=== PATIENT | female | born 1995 | race Caucasian/White ===

== ENCOUNTER → 2016-12-31 | Day surgery (SDC) | payer OTHER ==
[2016-12-17 14:05] VITALS: Ht 172.7 cm; Wt 59.1 kg
[~2016-12-31] VITALS: Ht 172.7 cm; Wt 59.1 kg
[~2016-12-31] MED LIST: ASCA500 PO; ATROPINE SULFATE 0.1 MG/ML 5ML SYR IV PRN; BCPILLS PO; BUPIVACAINE/EPINEPHRINE 0.25% 1:200,000 30 ML VIAL ONE; CEFAZOLIN 2000 MG/60 ML D5W IV SCH; DEXAMETHASONE SOD INJ 4 MG/ML VIAL ONE; EpHEDrine SULFATE INJ 50 MG/ML AMP IV PRN; EpINEphrine INJ 1MG/ML AMP 1 MG/ML AMP ONE; FENTANYL CITRATE INJ 50 MCG/1 ML 2 ML VIAL IV PRN; FENTANYL CITRATE INJ 50 MCG/1 ML 2 ML VIAL ONE; GLYCOPYRROLATE INJ 0.2 MG/ML VIAL ONE; KETO10TA PO; LACTATED RINGER'S 1000ML 1,000 ML IV SCH; LIDOCAINE HCL 2% 2 ML VIAL (20MG/ML) ONE; MIDAZOLAM HCL 1 MG/ML 2ML VIAL ONE; NEOSTIGMINE METHYLSULFATE 5 MG/5 ML SYR ONE; ONDANSETRON INJ 2 MG/ML 2 ML VIAL IV PRN; ONDANSETRON INJ 2 MG/ML 2 ML VIAL ONE; OXYC-57 PO; OXYCODONE/ACETAMINOPHEN 5-325 TAB PO PRN; PROPOFOL IV EMULSION 10 MG/ML 20 ML VIAL IV ONE; ROCURONIUM BROMIDE 10 MG/ML 5 ML VIAL ONE; ROPIVACAINE 0.5% 5 MG/ML 30 ML VIAL ONE; SCOPOLAMINE 1.5 MG TDSY TD ONE; SODIUM CHLORIDE 0.9% 1000ML 1,000 ML IV SCH; SUCCINYLCHOLINE CHLORIDE 20 MG/ML 10 ML VIAL IV ONE
--- NOTE | 2016-12-31 07:08 | History & Physical Bridge - [place] ---
H&P Re-Evaluation Bridge Note: I have examined the patient, reviewed the History & Physical and in the interval since the performance of the History & Physical I have noted the following changes of clinical significance: No changes noted
--- NOTE | 2016-12-31 09:29 | Discharge Instructions-SurgCtr ---
Discharge Instructions Date of Service Dec 31, 2016. Visit Reason for Visit: Left Shoulder Injury Of Superior Glenoid Labrum Discharge Discharge Diagnosis / Problem: SAME ABOVE Discharge Goals Goal(s): Decrease discomfort, Improve function Activity Recommendations Activity Limitations: as noted below Lifting Limitations: gradually increase as tolerated Exercise/Sports Limitations: gradually increase as tolerated Shower/Bathe: tomorrow Anesthesia . Post Anesthesia Instructions: If you have had General Anesthesia or IV Sedation: * Do not drive today. * Resume driving when surgeon permits. * Do not make important decisions or sign legal documents today. * Call surgeon for: 1. Temperature elevations greater than 101 degrees F. 2. Uncontrollable pain. 3. Excessive bleeding. 4. Persistent nausea and vomiting. 5. Medication intolerance (nausea, vomiting or rash). * For nausea and vomiting use only clear liquids such as: tea, soda, bouillon until nausea subsides, then gradually increase diet as tolerated. * If you have any concerns or questions, call your surgeon's office. If physician is unavailable and it is an emergency, call 911 or go to the nearest emergency room. . Instructions / Follow-Up Instructions / Follow-Up MEDICATIONS: * Resume previous medications unless instructed otherwise by your surgeon. * Always take pain medication on a full stomach or with food to avoid upset stomach. * Do not drink alcohol or drive while taking narcotics. * Ibuprofen or Tylenol may be taken if narcotic not needed. SPECIAL CARE INSTRUCTIONS: __ None _X_ Keep extremity elevated and iced x 48 hours; apply ice 20-30 minutes 8-10 times/day. May remove at night. _X_ Sling (WEAR ONLY NEEDED FOR COMFORT) __24 hrs/day __ Remove at night __ Shoulder Immobilizer __ 24 hrs/day __ Remove at night _X_ Dressing __ Maintain until seen in office, may shower with plastic over site _X_ Remove dressings in 24-48 hours and then may shower _X_ Cover incisions with band-aids after showering __ Do not remove steri-strips Call physician if chills or temperature rises above 102 degrees or pain unrelieved by prescribed pain medications at . . Diet Recommendations Home Diet: no limitations Fluid Restriction: None Procedures Procedures Performed: Left Shoulder Arthroscopy, Debridement Pending Studies Studies pending at discharge: no Work Instructions Return To Work: after follow-up Lifting Limitations: INCREASE TOLERATED Medical Emergencies . Who to Call and When: Medical Emergencies: If at any time you feel your situation is an emergency, please call 911 immediately. . Non-Emergent Contact Non-Emergency issues call your: Primary Care Provider Call Non-Emergent contact if: you have a fever, temperature is above 101.5 . . "Provider Documentation" section prepared by Roverto Last. .
[2016-12-31 10:13] VITALS: TEMP 36.5
--- NOTE | 2016-12-31 10:32 | [facility] Post Operative Brief Note ---
Immediate Operative Summary Operative Date Dec 31, 2016. Pre-Operative Diagnosis Left Shoulder Injury of Superior Glenoid Labrum Post-Operative Diagnosis same Procedure(s) Performed Left Shoulder Arthroscopy, Debridement Surgeon Dr. Jimi Reilly Design Cell Engineer Surgeon(s) Irving Last PA-C Estimated Blood Loss 5cc Findings as above Specimens none Complication(s) None Disposition Recovery Room / PACU
[2016-12-31 10:35] VITALS: BP 100/63; PULSE 66; O2SAT 100
--- NOTE | 2016-12-31 10:39 | Anesthesia Progress Nt - [facility] ---
Anesthesia Post Op Note Date & Time Dec 31, 2016 at 10:39 Vital Signs Pain Intensity: 0 Vital Signs Past 12 Hours Date Time Temp Pulse Resp B/P (MAP) Pulse Ox O2 Delivery O2 Flow Rate FiO2 12/31/16 10:35 66 14 100/63 (75) 100 Room Air 12/31/16 10:13 36.5 71 16 111/69 (83) 99 Room Air 12/31/16 10:01 36.6 111/73 12/31/16 09:59 85 21 100 12/31/16 09:59 85 21 12/31/16 09:56 109/70 12/31/16 09:54 80 20 100 12/31/16 09:54 79 20 12/31/16 09:51 104/65 12/31/16 09:49 91 15 12/31/16 09:49 87 15 100 12/31/16 09:46 112/65 12/31/16 09:44 77 16 12/31/16 09:44 79 16 100 12/31/16 09:41 110/68 12/31/16 09:39 90 16 100 12/31/16 09:39 86 16 12/31/16 09:36 112/63 12/31/16 09:34 100 20 12/31/16 09:34 101 20 100 12/31/16 09:31 116/64 12/31/16 09:29 101 16 12/31/16 09:29 101 16 100 12/31/16 09:28 36.5 122 20 114/67 100 Mask 6 12/31/16 08:27 114/67 12/31/16 08:19 0 12/31/16 08:18 22 12/31/16 08:16 108/66 12/31/16 08:13 101 12/31/16 08:13 101 37 100 12/31/16 08:12 98 12/31/16 08:12 100 21 100 12/31/16 08:11 105/68 12/31/16 08:11 105/68 12/31/16 08:10 105 12/31/16 08:10 102 20 100 12/31/16 08:07 99 12/31/16 08:07 97 18 100 12/31/16 08:06 110/66 12/31/16 08:06 110/66 12/31/16 08:05 98 12/31/16 08:05 100 34 100 12/31/16 08:02 102 20 100 12/31/16 08:02 102 12/31/16 08:01 118/76 12/31/16 08:01 118/76 12/31/16 08:00 112 18 100 12/31/16 08:00 111 12/31/16 07:57 115 15 100 12/31/16 07:57 115 12/31/16 07:56 117/68 12/31/16 07:56 117/68 12/31/16 07:55 124 12/31/16 07:55 124 12/31/16 07:55 122 28 100 12/31/16 07:55 122 28 100 12/31/16 07:51 118/76 12/31/16 07:51 118/76 12/31/16 07:50 100 12/31/16 07:50 100 100 12/31/16 07:50 100 12/31/16 07:50 100 100 12/31/16 06:29 36.7 88 16 118/70 (86) 100 Room Air Notes Mental Status: alert / awake / arousable, participated in evaluation Pt Amnestic to Procedure: Yes Nausea / Vomiting: adequately controlled Pain: adequately controlled Airway Patency, RR, SpO2: stable & adequate BP & HR: stable & adequate Hydration State: stable & adequate Anesthetic Complications: no major complications apparent
--- NOTE | 2016-12-31 11:17 | OPERATIVE REPORT ---
DATE OF OPERATION: 12/31/2016 PREOPERATIVE DIAGNOSIS: Possible superior labrum, anterior and posterior tear of the left shoulder. POSTOPERATIVE DIAGNOSIS: Large anterior superior sublabral foramen with intact superior labrum and superior glenohumeral ligament scar into the biceps tendon. PROCEDURE: Left shoulder diagnostic arthroscopy with limited debridement. SURGEON: Dr. Jose Reilly. LEAN SPECIALIST: Irving Last PA-C, whose assistance was necessary for positioning the arm and helping with instrumentation. ANESTHESIA: General with a left interscalene nerve block. COMPLICATIONS: None. CONDITION: Stable to PACU. INDICATIONS: Nu is a pleasant 21-year-old female who has been having a several year history of left shoulder pain. It is getting to the point now where it hurts her throughout the day and she is having difficulty sleeping at night. She has had 2 MRIs, 1 was suggestive of questionable SLAP tear. The other one did not show any labral tears. On clinical examination, she had very positive Brashear's test and elected to proceed with diagnostic arthroscopy. OPERATION AND FINDINGS: On 12/31/[address] [facility] for the above procedure. She was seen in the preoperative holding area and the operative extremity was identified and signed. She was given a preoperative antibiotic and a left interscalene nerve block. She was taken back to the operating room, laid on the table in supine position and put under general anesthesia. She was then put in the lateral decubitus position. The left shoulder was then prepped and draped in sterile fashion. Time-out was done and the patient and operative extremity was properly identified. The arm was brought out to an Arthrex 3-point distracter. A scope was placed in the posterior portal. Diagnostic arthroscopy showed no cartilage damage to the humeral head or the glenoid. The rotator cuff was intact. The biceps tendon went through a normal size biceps rigoberto mechanism. There were bands of the superior glenohumeral ligament that were extending down along the dorsal aspect of the biceps tendon. There was a little redness in this area. There was a large anterior superior sublabral foramen. I did not see any thickening of the middle glenohumeral ligament and no true Donnie complex. The biceps tendon was well anchored on the superior glenoid. An anterior portal was made and a probe was used to probe the intra-articular structures. Circumferentially the labrum was completely intact. A shaver was used to remove the remnants of the superior glenohumeral ligament that were coming down onto the dorsal aspect of the biceps tendon. This freed up the biceps tendon. The biceps tendon was pulled into the joint. There was no pathology identified. The scope was placed into the anterior portal. Repeat diagnostic arthroscopy from the contralateral portal showed no additional pathology. I did debride a little bit of the posterior superior labrum, but I could not identify anything significant in the shoulder. The scope was placed back into the posterior portal and I took the shoulder through a full range of motion. There was no peel back sign. No signs of any impingement. Arthroscopic instruments were removed from the shoulder. Portal sites were closed with 3-0 nylon. She was then placed in a soft dressing and a regular arm sling. She was then extubated, transferred to a litter and taken to the postanesthesia care unit in stable condition. She tolerated the procedure well. I attest to the content of the Intraoperative Record and any orders documented therein. Any exception s are noted below.
== END | disposition home or self-care (01) ==
LOC: X.SURG 06:09 → EDSEX 07:00
PROVIDERS: ATTEND Orthopaedic Surgery
DX: S43.402A Unspecified sprain of left shoulder joint, initial encounter (principal); X58.XXXA Exposure to other specified factors, initial encounter; Z90.89 Acquired absence of other organs

== ENCOUNTER 2024-02-01 18:31 | Inpatient (IN) ==
[2024-02-01] MEDS ORDERED: OXYTOCIN 30 UNITS/NSS 30 UNITS/500 ML BAG IV PRN (19:07)
[2024-02-01] MEDS ORDERED: LIDOCAINE 1% LOCAL 20 ML VIAL INFIL PRN (19:07)
[2024-02-01] MEDS ORDERED: CALCIUM CARBONATE 500 MG CHEWABLE TAB PO PRN (19:07)
--- NOTE | 2024-02-01 19:15 | History & Physical Report ---
Date of Service February 01, 2024 Assessment & Plan (1) Active labor at term: Plan: 28-year-old at 40 weeks and 2 days of gestation presenting today with regular contractions and in active labor, Vital signs stable afebrile, GBS is negative, heart rate reassuring, Plan to admit, monitor, labs, epidural for pain per patient request, All questions were answered. History of Present Illness Primary Care Provider: Jose Reilly DO Patient is a 28-year-old G1, P0 at 40 weeks and 2 days of gestation who has been feeling contractions since 3 AM this morning. They were irregular initially but they got more regular and painful after 4 PM. She feels them every 3 to 5 minutes and pain is 8 out of 10. She denies leakage of fluid or vaginal bleeding. She reports good movements. She was in the office today where she reported contractions but they were less painful, her cervix was not checked per her preference. she went home and contractions get more regular and painful and she called me around 4:45 PM when I told her to come in to L&D. She visibly seems painful and she desires epidural for pain. Her has been uncomplicated, GBS negative. She denies medical problems, medication use other than vitamins, denies any history of STDs including chlamydia, gonorrhea, herpes, denies tobacco alcohol or drug use and no allergies to medications. Allergies Allergy/AdvReac Type Severity Reaction Status Date / Time No Known Allergies Allergy Unverified 12/31/16 06:28 Home Medications Medication Instructions Recorded Confirmed Type Ascorbic Acid (Vitamin C) 1 tab PO QAM ##0 12/17/16 History Control Pills 1 tab PO QAM ##0 12/17/16 History Patient History Social History Smoking Status: Never smoker Hx Alcohol Use: No Hx Substance Use: No Preferred Language: Arabic Communication Ability: Effective Design Editor Required: No Beliefs That Will Affect Care: None marital status: Current Living Situation: Spouse Other Information That Helps Us Care for You: No Feels Safe at Home: Yes Review of Systems as per Subjective / HPI Physical Exam Constitutional: WD/WN, vitals as above well developed, well nourished and + acute distress ( with contractions only) Gastrointestinal (Abdomen): normal bowel sounds, soft, nontender, no hepatosplenomegaly ( gravid) Genitourinary: normal external appearance OB Exam Abdomen: + vertex Manual OB Exam: + cervical dilation 5 cm (5-6 CM), + cervical effacement 80% and + station -1 OB Exam Monitor Tracing: + external uterine monitor used and + category I Results & Data Vital Signs (Past 12 Hours) Vital Signs Temp Pulse Resp BP 02/01/24 18:57 36.4 C L 20 02/01/24 18:40 87 128/76
[2024-02-01] MEDS: LACTATED RINGER'S 1,000 ML IV PRN (19:35)
[2024-02-01 19:53] LABS: Hematocrit (blood only) 37.3 % (37.0-47.0); Hemoglobin 12.3 g/dl (12.0-16.0); Mean Corpuscular Hemoglobin 26.8 pg (25.0-34.0); Mean Corpuscular Volume 81.3 fL (80.0-100.0); Mean Platelet Volume 11.6 fL (9.4-12.4); Platelet Count 286 K/uL (130-400); RDW Coefficient of Variation 13.2 % (11.5-14.5); RDW Standard Deviation 38.5 fL (36.4-46.3); Red Blood Count 4.59 M/uL (4.20-5.40); White Blood Count 11.53 K/ul (4.8-10.8)
[2024-02-01] MEDS ORDERED: ROPIVACAINE 0.5% PF 5 MG/ML 20 ML VIAL EPI PRN (19:58)
[2024-02-01] MEDS ORDERED: BUPIVACAINE 0.25% PF 30 ML VIAL EPI PRN (19:58)
[2024-02-01] MEDS ORDERED: SODIUM CHLORIDE 0.9% PF INJ 10 ML VIAL EPI PRN (19:58)
[2024-02-01] MEDS ORDERED: ePHEDrine sulfate 50 MG/ML AMP IV PRN (19:58)
[2024-02-01] MEDS ORDERED: NALOXONE HCL 0.4 MG/1 ML VIAL/CARP IV PRN (19:58)
[2024-02-01] MEDS ORDERED: fentaNYL citrate PF 100 MCG/2 ML VIAL EPI PRN (19:58)
[2024-02-01] MEDS ORDERED: NALBUPHINE HCL 5 MG in SYRINGE 0 ML IV PRN (19:58)
[2024-02-01] MEDS ORDERED: fentANYL 2 MCG/ML BUPIVacaine 0.125%-NSS 100ML BAG EPI PRN (19:58)
[2024-02-01] MEDS ORDERED: LIDOCAINE 2% MPF LOCAL 5 ML VIAL EPI PRN (19:58)
[2024-02-01] MEDS ORDERED: NALOXONE HCL 1 MG in SODIUM CHLORIDE 0.9% 1,000 ML IV PRN (19:58)
[2024-02-01] MEDS ORDERED: diphenhydrAMINE 50 MG/ML VIAL IV PRN (19:58)
--- NOTE | 2024-02-01 19:58 | Anesthesiology Consultation ---
Date of Service February 01, 2024 Assessment & Plan (1) Encounter for pre-operative examination: Chart Review Chart Review: Patient NOT seen in Pre Admission Testing and Acceptable Risk for Labor Epidural Consults Requested none History Height/Weight Height: 5 ft 8 in Weight: 83.395 kg Allergies Allergy/AdvReac Type Severity Reaction Status Date / Time No Known Allergies Allergy Unverified 12/31/16 06:28 Medications Home Medications Medication Instructions Recorded Confirmed Last Taken Ascorbic Acid (Vitamin C) 1 tab PO QAM ##0 12/17/16 Unknown Control Pills 1 tab PO QAM ##0 12/17/16 Unknown Active Medications Generic Name Dose Route Start Last Admin Trade Name Freq PRN Reason Stop Dose Admin Lactated Ringer's 1,000 mls @ 150 mls/hr 02/01/24 19:07 02/01/24 19:35 Lr IV 02/03/24 19:06 999 mls/hr .[id number] PRN Administration L&D Protocol Protocol Social History Smoking Status: Never smoker Hx Alcohol Use: No Hx Substance Use: No Physical Exam Vital Signs Last Vital Signs Temp 97.5 F L 02/01/24 18:57 Pulse 87 02/01/24 18:40 Resp 20 02/01/24 18:57 BP 128/76 02/01/24 18:40 Testing Laboratory Results 02/01/24 19:35
[2024-02-01] MEDS: LIDOCAINE 2%/EPINEPHRINE 1:200,000 20 ML PF ONE ×2 (20:13→20:56)
[2024-02-01] MEDS: BUPIVACAINE 0.25% PF 30 ML VIAL ONE (20:13)
[2024-02-01] MEDS: fentaNYL citrate PF 100 MCG/2 ML VIAL ONE (20:13)
[2024-02-01] MEDS: fentANYL 2 MCG/ML BUPIVacaine 0.125%-NSS 100ML BAG ONE (20:16)
[2024-02-01] MEDS: SODIUM CHLORIDE 0.9% PF INJ 10 ML VIAL ONE (20:17)
[2024-02-01] MEDS: ePHEDrine sulfate 50 MG/ML AMP ONE (20:55)
[2024-02-01] MEDS: LIDOCAINE 2%/EPINEPHRINE 1:200,000 20 ML PF EPI STA (20:56)
[2024-02-01] MEDS: fentaNYL citrate PF 100 MCG/2 ML VIAL EPI STA (20:56)
[2024-02-01] MEDS: SODIUM CHLORIDE 0.9% PF INJ 10 ML VIAL EPI STA (20:56)
[2024-02-01] MEDS: BUPIVACAINE 0.25% PF 30 ML VIAL EPI STA (20:56)
--- NOTE | 2024-02-01 21:14 | Obstetrical Progress Note ---
Date of Service February 01, 2024 Assessment & Plan Admission and Anticipated Discharge Date Admission Date: February 01, 2024 Subjective Patient is comfortable now, received epidural for pain FHR categ I [place] contractions spaced out Continue to monitor, augment with Low dose Oxytocin per protocol Results & Data Vital Signs (Past 12 Hours) Vital Signs Temp Pulse Resp BP Pulse Ox 02/01/24 21:12 100 02/01/24 21:12 92 H 02/01/24 21:07 100 02/01/24 21:07 94 H 02/01/24 21:03 73 02/01/24 21:03 116/69 02/01/24 21:02 100 02/01/24 21:02 76 02/01/24 20:57 100 02/01/24 20:57 84 02/01/24 20:52 100 02/01/24 20:52 81 02/01/24 20:48 75 02/01/24 20:48 119/71 02/01/24 20:47 100 02/01/24 20:47 75 02/01/24 20:42 100 02/01/24 20:42 83 02/01/24 20:37 100 02/01/24 20:37 80 02/01/24 20:32 100 02/01/24 20:32 77 02/01/24 20:30 75 02/01/24 20:30 111/68 02/01/24 20:27 100 02/01/24 20:27 80 02/01/24 20:27 112/66 02/01/24 20:24 80 02/01/24 20:24 113/67 02/01/24 20:22 100 02/01/24 20:22 88 02/01/24 20:20 81 02/01/24 20:20 115/68 02/01/24 20:18 86 02/01/24 20:18 116/64 02/01/24 20:17 100 02/01/24 20:17 91 H 02/01/24 20:12 99 02/01/24 20:12 90 02/01/24 20:11 100 H 02/01/24 20:11 127/77 02/01/24 18:57 36.4 C L 20 02/01/24 18:40 87 128/76
[2024-02-01] MEDS: OXYTOCIN 30 UNITS/NSS 30 UNITS/500 ML BAG IV PRN (21:37)
[2024-02-01] MEDS: ceFAZolin 2000MG 2,000 MG/15 ML SYR IV STA (23:28)
[2024-02-01] MEDS: MINERAL OIL 30 ML UDC ONE (23:37)
[2024-02-01] MEDS: METHYLERGONOVINE MALEATE 0.2 MG/ML AMP ONE (23:55)
--- NOTE | 2024-02-02 00:14 | Delivery Summary ---
Vaginal Delivery Summary Date of Service February 02, 2024 Vaginal Delivery Summary Patient was found to be fully dilated and desires to push. She pushed through 4 contractions and delivered the head and then shoulders with minimal traction without difficulty. The baby was handed off to the mother. The cord was clampedx2 and cut at 1 minute delay. He was vigorously moving and crying. The vagina and perineum were checked and found to have 3rd degree perineal laceration. Rectal exam was done and noted partial sphincter tone. The gloves were changes. External anal sphincter was held with 2 Allis Clamps and brought to the midline and repaired with 2-0 Vicryl in a end-to-end fashion with [id number] stitches x 3. And perineal body muscles around the sphincter were also repaired with 2-0 Vicryl supporting the sphincter muscle. Rectal exam was repeated and good sphincter integrity and tone was noted and no sutures were felt. The vaginal mucosa was repaired with another sterile 2/0 vicryl and skin on subcuticular fashion. The placenta was delivered spontaneously as intact and complete. The uterus was explored and emptied of blood cloths. IV Oxytocin was started. The fundus was firm. There noted to be small vessel pumping at 12 o'clock position at the cervix. It was repaired with 2-0 Vicryl week [id number] stitches x 3 and excellent hemostasis achieved. Plan for suture lacerations on the left upper labia were repaired with 3-0 Vicryl on SH needle. Rest of the vagina and labia were intact. During repair patient was given 2 g of IV cefazolin for prophylaxis. The baby was a viable male infant, Apgars 8/9, the weight is pending. QBL was 791 ml. The mother and the baby tolerated the procedure well. No complications happened and I was present during whole procedure.
[2024-02-02] MEDS ORDERED: HYDROCORTISONE ACETATE 25 MG SUPP PR PRN (00:15)
[2024-02-02] MEDS ORDERED: OXYTOCIN 30 UNITS/NSS 30 UNITS/500 ML BAG IV PRN (00:15)
[2024-02-02] MEDS: METHYLERGONOVINE MALEATE 0.2 MG/ML AMP IM ONE (01:59)
[2024-02-02] MEDS: DIPHTHER/TETAN/PERTUS Vaccine (Tdap, Adol/Adult) 0.5mL IM ONE (02:00)
[2024-02-02] MEDS: MEASLES, MUMPS & RUBELLA VIRUS VACCINE (MMR) 0.5ML VIAL SQ ONE (02:00)
[2024-02-02] MEDS: BENZOCAINE 20% SPRY 85 APPLN/85 GM CAN EXT PRN (03:34)
[2024-02-02] MEDS: IBUPROFEN 600 MG TAB PO PRN (03:34)
[2024-02-02] MEDS: METHYLERGONOVINE MALEATE 0.2 MG TAB PO SCH (04:42)
--- OUTSIDE RECORDS SUMMARY | 2024-02-02 06:09 | External Medical Summary | Summary of Care ---
Author Name Unknown Organization [facility] Address [address] [facility] [place] [address] Phone [phone] Care Team Providers Care Data Processing Mechanic Name Role Phone Kathrine Baez DO Primary Care Provider Reason for Visit * Reason Comments Return Visit Encounter Details Date Type Department Care Team (Late st Contact Info) Description 01/04/2024 8:15 AM EDT Office Visit Gynecology/Obstetric s Maritza Moreno [address] [place] [address] Reva Ibanez CRNP [address] [place] [id number] Encounter for supervision of normal first in third trimester*; Subchorionic hematoma, antepartum, single or unspecified fetus Allergies No known active allergiesdocumented as of this encounter (statuses as of 01/04/2024) Medications Medication Sig Dispensed Refills Start Date End Date Status 27-0.8 MG Oral Tablet Take 1 Tablet by mouth daily at noon. Active documented as of this encounter (statuses as of 01/04/2024) Active Problems Problem Noted Date Diagnosed Date Supervision of normal first 06/28/2023 Subchorionic hematoma, antepartum 06/28/2023 Estimated Date of Delivery Comme nts Yes 01/30/2024 Based on last me nstrual period of 04/25/2023 documented as of this encounter (statuses as of 01/04/2024) Resolved Problems Problem Noted Date Diagnosed Date Resolved Date Viral sinusitis 05/27/2022 09/01/2022 Non-recurrent acute suppurat chris otitis media of left ear without spontaneous rupture of tympanic membrane 05/27/2022 09/01/2022 Impacted cerumen of right ear 05/27/2022 09/01/2022 documented as of this encounter (statuses as of 01/04/2024) Immunizations Name Administration Dates Next Due PPD 09/02/2022 TDAP (age 10 and older)(Boostrix) 11/08/2023, documented as of this encounter Social History Tobacco Use Types Packs/Day Years Used Date Smoking Tobacco: Never Smokeless Tobacco: Never Alcohol Use Standard Drinks/Week Comments No 0 (1 standard drink = 0.6 oz pur e alcohol) AUDIT-C Answer Date Recorded Frequency of Alcohol Consumption Never 10/07/2018 Average Number of Drinks Not on file 019 Frequency of Binge Drinking Not on file 09/17 PHQ-2 Answer Date Recorded PHQ Adult Total Score 0 11/23/2023 Hunger Vital Sign Answer Date Recorded Within the past 12 months, y ou worried that your food would run out before you got the money to buy more. Never true 08/31/19 24 Within the past 12 months, t he food you bought just didn't last and you didn't have money to get more. Never true 08/31/2023 [place] Depression Scale Answer Date Recorded [place] Depression Scale Total 4 11/23/2023 The thought of harming myself has occurred to me . Never 11/23/2023 Estimated Date of Delivery Comme nts Yes 01/30/2024 Based on last me nstrual period of 04/25/2023 Sex and Gender Information Value Date Recorded Sex Assigned at Female 03/18/2023 11:41 AM EDT Gender Identity Female 03/18/2023 11:41 AM EDT Sexual Orientation Straight 03/18/2023 11 :41 AM EDT Job Start Date Occupation Industry Not on file Not on file Not on file documented as of this encounter Last Filed Vital Signs Vital Sign Reading Time Taken Comments Blood Pressure 100/64 01/04/2024 8:17 AM EDT Pulse - - Temperature - - Respiratory Rate - - Oxygen Saturation - - Inhaled Oxygen Concentration - - Weight 80.7 kg (178 lb) 01/04/2024 8:17 AM EDT Height - - Body Mass Index 27.06 11/23/2023 8:56 AM EDT documented in this encounter Progress Notes * Reva Ibanez CRNP - 01/04/2024 8:31 AM EDT 36w2d Complaints: none Feeling well overall. Good FM. No contractions, bleeding, or LOF. GBS today. Legal Instruments Examiner Documentation Provider requested ergonomic specialist. Name of ergonomic specialist: OSWALD Flynn * Harriet Nixon LPN - 01/04/2024 8:17 AM EDT Pt is currently 36w2d with an Estimated Date of Delivery: 01/30/24 - GBS today documented in this encounter Plan of Treatment Upcoming Encounters Date Type Department Care Team (Late st Contact Info) Description 01/11/2024 10:15 AM EDT [facility] [address] [place] [phone] Reva Ibanez CRNP [address] [place] [address] 01/19/2024 1:45 PM EDT Office Visit Gynecology/Obstetrics [facility] [address] [place] [address] Reva Ibanez CRNP [address] [place] [address] 01/25/2024 9:00 AM EDT Office Visit Gynecology/Obstetrics [facility] [address] [place] [address] Reva Ibanez CRNP [address] [place] [address] Pending Results Name Type Priority Associated Diagnoses Date /Time GROUP B STREP CULTURE/PCR Lab Routine Encounter for supervision of normal first in third trimester 01/04/2024 8:31 AM EDT Scheduled Orders Name Type Priority Associated Diagnoses Orde r Schedule GROUP B STREP CULTURE/PCR Lab Routine Encounter for supervision of normal first in third trimester Expected: 01/04/2024, Expires: 01/03/2025 Health Maintenance Due Date Last Done Comments COVID-19 Vaccine (2022- season) 2023 HPV/Co-Test 12/17/2023 Influenza Vaccine (FLU shot) (Season Ended) 2024 Depression Screening 11/22/2024 11/23/2023 Cervical Cancer Screening 06/28/2026 Pap Smear 06/28/2026 06/28/2023 DTaP,Tdap,and Td Vaccines (9 - Td or Tdap) 11/07/2033 11/08/2023, 09/02/2022, 02/01/2006, Additional history exists Hepatitis B Completed 07/08/1994, 01/17, 1993 MENINGOCOCCAL (MENACTRA/MENVEO) Aged Out 02/02/2005 No longer eligible based on patient's age to complete this topic GARDASIL-HPV IMMUNIZATION SERIES Completed 10/14/2007, 03/08/2007, 09/07/2006 Pneumococcal Vaccine: Pediatrics (0 to 5 Years) and At-Risk Patients (6 to 64 Years) Aged Out No longer eligible based on patient's age to complete this topic documented as of this encounter Medical Devices Not on filedocumented as of this encounter Visit Diagnoses Diagnosis Encounter for supervision of normal first in third trimester- Primary Supervision of normal first Subchorionic hematoma, antepartum, single or unspecified fetus documented in this encounter Care Teams Data Processing Mechanic Relationship Specialty Start Date End Date Kathrine Baez DO [address] [facility] [place] [id number] PCP - General Family Medicine 10/07/18 documented as of this encounter
--- OUTSIDE RECORDS SUMMARY | 2024-02-02 06:09 | External Medical Summary ---
Author Name Unknown Address Unknown Organization K01[place] [place] [address] [place] [address] Laboratory Report Ordering Provider Test Date Status JULIEN POSEY 01/04/2024 08:31:27 Final Observation Date Value Abnormality Reference (Units ) Status Streptococcus agalactiae DNA [Presence] in Specimen by BEULAH with probe detection 01/04/2024 08:31:27 Negative Negative Final No Group B Streptococcus det ected by culture-enhanced PCR (amplified probe). GBS GBSCT - [facility] 01/04/2024 08:31:27 0.0 Final GBS SPCCT - [facility] 01/04/2024 08:31:27 30.9 Final Performing Location [facility] - [address] [place] [address]
--- OUTSIDE RECORDS SUMMARY | 2024-02-02 06:09 | External Medical Summary | Summary of Care ---
Author Name Unknown Organization [facility] Address [address] [facility] [place] [address] Phone [phone] Care Team Providers Care Foundation Relations Director Name Role Phone Kathrine Baez DO Primary Care Provider Reason for Visit * Reason Comments Return Visit Encounter Details Date Type Department Care Team (Late st Contact Info) Description 12/21/2023 8:15 AM EDT Office Visit Gynecology/Obstetric s Mar[facility] Moreno [address] [place] [address] Reva Ibanez CRNP [address] [place] [address] Encounter for supervision of normal first in third trimester*; Subchorionic hematoma, antepartum, single or unspecified fetus Allergies No known active allergiesdocumented as of this encounter (statuses as of 12/21/2023) Medications Medication Sig Dispensed Refills Start Date End Date Status 27-0.8 MG Oral Tablet Take 1 Tablet by mouth daily at noon. Active documented as of this encounter (statuses as of 12/21/2023) Active Problems Problem Noted Date Diagnosed Date Supervision of normal first 06/28/2023 Subchorionic hematoma, antepartum 06/28/2023 Estimated Date of Delivery Comme nts Yes 01/30/2024 Based on last me nstrual period of 04/25/2023 documented as of this encounter (statuses as of 12/21/2023) Resolved Problems Problem Noted Date Diagnosed Date Resolved Date Viral sinusitis 05/27/2022 09/01/2022 Non-recurrent acute suppurat chris otitis media of left ear without spontaneous rupture of tympanic membrane 05/27/2022 09/01/2022 Impacted cerumen of right ear 05/27/2022 09/01/2022 documented as of this encounter (statuses as of 12/21/2023) Immunizations Name Administration Dates Next Due PPD [...] money to get more. Never true 08/31/2023 [place] Depression Scale Answer Date Recorded [place] Depression Scale Total 4 11/23/2023 The thought [...] Sign Reading Time Taken Comments Blood Pressure 102/58 12/21/2023 8:13 AM EDT Pulse - - Temperature - - Respiratory Rate - - Oxygen Saturation - - Inhaled Oxygen Concentration - - Weight 79.9 kg (176 lb 3.2 oz) 12/21/2023 8:13 A M EDT Height - - Body Mass Index 26.79 11/23/2023 8:56 AM EDT documented in this encounter Progress Notes * Reva Ibanez CRNP - 12/21/2023 8:24 AM EDT 34w2d Started with some pedal edema, resolves with elevation. Questioning travel around 37w to [place], advised against this. No other concerns. Baby is active. No contractions, bleeding, LOF. GBS next visit. OSWALD Mccarthy * Sabra Moran MED ASSIST - 12/21/2023 8:12 AM EDT 34w2d Vaginal bleeding: no ROM: no movement: present Contractions: no Nausea: no Vomiting: no Headaches: no documented in this encounter Plan of Treatment Upcoming Encounters Date Type Department Care Team (Late st Contact Info) Description 01/04/2024 8:15 AM EDT Office Visit Gynecology/Obstetrics [facility] Moreno [address] [place] [address] Reva Ibanez CRNP [address] [place] [address] Health Maintenance Due Date Last Done Comments [...] fetus documented in this encounter Care Teams Foundation Relations Director Relationship Specialty Start Date End Date Kathrine Baez DO [address] [place] [address] PCP - General Family Medicine 10/07/18 documented as of this encounter
--- OUTSIDE RECORDS SUMMARY | 2024-02-02 06:09 | External Medical Summary | Summary of Care ---
Author Name Unknown Organization [facility] Address [address] [facility] [place] [address] Phone [phone] Care Team Providers Care Hot Car Charger Name Role Phone Kathrine Baez DO Primary Care Provider [phone] Reason for Visit * Reason Comments Return Visit Encounter Details Date Type Department Care Team (Late st Contact Info) Description 01/19/2024 1:45 PM EDT Office Visit Gynecology/Obstetric s Mar[facility] Moreno [address] [place] [address] Reav Ibanez CRNP [address] [place] [address] Encounter for supervision of normal first in third trimester*; Subchorionic hematoma, antepartum, single or unspecified fetus Allergies No known active allergiesdocumented as of this encounter (statuses as of 01/19/2024) Medications Medication Sig Dispensed Refills Start Date End Date Status 27-0.8 MG Oral Tablet Take 1 Tablet by mouth daily at noon. Active documented as of this encounter (statuses as of 01/19/2024) Active Problems Problem Noted Date Diagnosed Date Supervision of normal first 06/28/2023 Subchorionic hematoma, antepartum 06/28/2023 Estimated Date of Delivery Comme nts Yes 01/30/2024 Based on last me nstrual period of 04/25/2023 documented as of this encounter (statuses as of 01/19/2024) Resolved Problems Problem Noted Date Diagnosed Date Resolved Date Viral sinusitis 05/27/2022 09/01/2022 Non-recurrent acute suppurat chris otitis media of left ear without spontaneous rupture of tympanic membrane 05/27/2022 09/01/2022 Impacted cerumen of right ear 05/27/2022 09/01/2022 documented as of this encounter (statuses as of 01/19/2024) Immunizations Name Administration Dates Next Due PPD [...] money to get more. Never true 08/31/2023 [place] Depression Scale Answer Date Recorded [place] Depression Scale Total 4 11/23/2023 The thought of harming myself has occurred to me . Never 11/23/2023 Childcare Answer Date Recorded Do you feel overwhelmed with taking care of a child, family member or friend? No 08/31/2023 Does your family need help f inding childcare? (Household - for ages 0-17 years) Not on file 08/31/2023 Clothing Answer Date Recorded Have you been unable to get clothing when it was really needed? No 08/31/2023 Is your family able to get c lothes or diapers when needed? (Household - for ages 0-17 years) Not on file 08/31/2023 Personal Safety Answer Date Recorded Do you feel unsafe or have concerns for your saf ety? No 08/31/2023 Do you have concerns for you r family's safety? (Household - for ages 0-17 years) Not on file 08/31/2023 Utilities Answer Date Recorded Do you have trouble paying y our heating, water, or electric bill? No 08/31/2023 Is your family able to pay t he heat, water, or electric bill? (Household - for ages 0-17 years) Not on file 08/31/2023 Does your family have access to good internet? (Household - for ages 0-17 years) Not on file 08/31/2023 Employment Status Answer Date Recorded Are you unemployed or without regular income? No 08/31/2023 Does the household have a re gular source of income? (Household - for ages 0-17 years) Not on file 08/31/2023 Social Connections Answer Date Recorded How often do you feel lonely or isolated from th ose around you? Never 08/31/2023 Financial Resource Strain Answer Date R ecorded Do you have any trouble payi ng for your medications, or do you think you might in the future? No 08/31/2023 Does your family have troubl e paying for medicine? (Household - for ages 0-17 years) Not on file 08/31/2023 Transportation Needs Answer Date Record ed READ ONLY Do you have troubl e getting a ride to medical visits or work? Never True 08/31/2023 Does your family have a hard time getting a ride to doctors visits? (Household - for ages 0-17 years) Not on file 08/31/2023 Has lack of transportation k ept you from medical appointments, meetings, work, or from getting things needed for daily living? Check all that apply. (Adult - for ages 18 years and over) Not on file 08/31/2023 Do you (or your family) have trouble finding or paying for a ride (transportation)? (Household - for ages 0-17 years) Not on file 08/31/2023 Housing Stability Answer Date Recorded Do you currently live in a s helter or have no steady place to sleep at night? No 08/31/2023 READ ONLY Do you think you a re at risk of becoming homeless? No 08/31/2023 Does your family worry about paying for your home or becoming homeless? (Household - for ages 0-17 years) Not on file 0 08/31/2023 Are you homeless or worried that you might be in the future? (Adult - for ages 18 years and over) Not on file Are you (or your family) rivas eless or worried that you might be in the future? (Household - for ages 0-17 years) Not on file Food Insecurity Answer Date Recorded Do you need food for this week? No 08/31/2023 Are you able to get enough f ood for your family? (Household - for ages 0-17 years) Not on file 08/31/2023 Does your family need food t his week? (Household - for ages 0-17 years) Not on file 08/31/2023 Do you always have enough fo od for your family? (Household - for ages 0-17 years) Not on file 08/31/2023 Estimated Date of Delivery Comme nts Yes [...] Sign Reading Time Taken Comments Blood Pressure 98/60 01/19/2024 1:45 PM EDT Pulse - - Temperature - - Respiratory Rate - - Oxygen Saturation - - Inhaled Oxygen Concentration - - Weight 80.7 kg (178 lb) 01/19/2024 1:45 PM EDT Height 172.7 cm (5' 8") 01/19/2024 1:45 PM EDT Body Mass Index 27.06 01/19/2024 1:45 PM EDT documented in this encounter Progress Notes * Reva Ibanez CRNP - 01/19/2024 2:05 PM EDT 38w3d No concerns. Baby is active. Denies contrations, bleeding, LOF. Discussed IOL, agreeable. OSWALD Mccarthy * Charito Benitez LPN - 01/19/2024 1:45 PM EDT 38w3d Denies any concerns documented in this encounter Plan of Treatment Upcoming Encounters Date Type Department Care Team (Late st Contact Info) Description 01/25/2024 9:00 AM EDT Office Visit Gynecology/Obstetrics [facility] [address] [place] [address] Reva Ibanez CRNP [address] [place] [address] Health Maintenance Due Date Last Done Comments COVID-19 Vaccine ( season) 2023 HPV/Co-Test 12/17/2023 Influenza Vaccine (FLU shot) (#1) 2024 Depression Screening 11/22/2024 11/23/2023 Cervical Cancer Screening 06/28/2026 Pap Smear 06/28/2026 06/28/2023 DTaP,Tdap,and Td Vaccines (9 - Td or Tdap) 11/07/2033 11/08/2023, 09/02/2022, 02/01/2006, Additional history exists Hepatitis B Vaccine Completed 07/08/1994, 02/11/1994, 1993 MENINGOCOCCAL (MENACTRA/MENVEO) Aged Out 02/02/2005 No longer eligible based on patient's age to complete this topic HPV (Gardasil) Vaccine Completed 8, 03/08/2007, 09/07/2006 Pneumococcal Vaccine: Pediatrics (0 to [...] fetus documented in this encounter Care Teams Hot Car Charger Relationship Specialty Start Date End Date Kathrine Baez DO [address] [place] [address] PCP - General Family Medicine 10/07/18 documented as of this encounter
--- OUTSIDE RECORDS SUMMARY | 2024-02-02 06:09 | External Medical Summary | Summary of Care ---
Author Name Unknown Organization [facility] Address [address] [facility] [place] [address] Phone [phone] Care Team Providers Care Relocation Counselor Name Role Phone Kathrine Baez DO Primary Care Provider Reason for Visit * Reason Comments Return Visit Encounter Details Date Type Department Care Team (Late st Contact Info) Description 02/01/2024 8:00 AM EDT Office Visit Gynecology/Obstetric s Mar[facility]za Moreno [address] [place] [address] Reva Ibanez CRNP [address] [place] [address] Post-term , 40-42 weeks of gestation*; Encounter for supervision of normal first in third trimester Allergies No known active allergiesdocumented as of this encounter (statuses as of 02/01/2024) Medications Medication Sig Dispensed Refills Start Date End Date Status 27-0.8 MG Oral Tablet Take 1 Tablet by mouth daily at noon. Active documented as of this encounter (statuses as of 02/01/2024) Active Problems Problem Noted Date Diagnosed Date Supervision of normal first 06/28/2023 Subchorionic hematoma, antepartum 06/28/2023 Estimated Date of Delivery Comme nts Yes 01/30/2024 Based on last me nstrual period of 04/25/2023 documented as of this encounter (statuses as of 02/01/2024) Resolved Problems Problem Noted Date Diagnosed Date Resolved Date Viral sinusitis 05/27/2022 09/01/2022 Non-recurrent acute suppurat chris otitis media of left ear without spontaneous rupture of tympanic membrane 05/27/2022 09/01/2022 Impacted cerumen of right ear 05/27/2022 09/01/2022 documented as of this encounter (statuses as of 02/01/2024) Immunizations Name Administration Dates Next Due PPD [...] money to get more. Never true 08/31/2023 [place] Depression Scale Answer Date Recorded [place] Depression Scale Total 4 11/23/2023 The thought [...] Sign Reading Time Taken Comments Blood Pressure 112/72 02/01/2024 8:00 AM EDT Pulse - - Temperature - - Respiratory Rate - - Oxygen Saturation - - Inhaled Oxygen Concentration - - Weight 83 kg (183 lb) 02/01/2024 8:00 AM EDT Height - - Body Mass Index 27.83 01/19/2024 1:45 PM EDT documented in this encounter Progress Notes * Reva Ibanez CRNP - 02/01/2024 8:16 AM EDT 40w2d Started with contractions at 0300, about every 7-10 minutes apart, uncomfortable. Was able to lay in bed and sleep between a lot of them. Baby is active. She denies bleeding or LOF. Offered NST, cervical check, she very politely declines. Reviewed to call before going to hospital, with contractions 5min apart for an hour, decreased FM, bleeding, LOF. OSWALD Mccarthy * Sabra Moran MED ASSIST - 02/01/2024 8:00 AM EDT 40w2d Denies vaginal bleeding/rom + movements + contractions, starting at 3:00am 7-9 minutes apart documented in this encounter Plan of Treatment Health Maintenance Due Date Last Done Comments [...] as of this encounter Visit Diagnoses Diagnosis Post-term , 40-42 weeks of gestation- Primary Post term , unspecified episode of care Encounter for supervision of normal first in third trimester Supervision of normal first documented in this encounter Care Teams Relocation Counselor Relationship Specialty Start Date End Date Kathrine Baez DO [address] [facility] [place] [address] PCP - General Family Medicine 10/07/18 documented as of this encounter
--- OUTSIDE RECORDS SUMMARY | 2024-02-02 06:09 | External Medical Summary | Summary of Care ---
Author Name Unknown Organization [facility] Address [address] [facility] [place] [address] Phone [phone] Care Team Providers Care Electrotyper Name Role Phone Kathrine Baez DO Primary Care Provider [phone] Reason for Visit * Reason Comments Return Visit Encounter Details Date Type Department Care Team (Late st Contact Info) Description 01/11/2024 10:15 AM EDT Office Visit Gynecology/Obstetric s Marit[facility] Moreno [address] [place] [address] Reva Ibanez CRNP [address] [place] [address] Encounter for supervision of normal first in third trimester* Allergies No known active allergiesdocumented as of this encounter (statuses as of 01/11/2024) Medications Medication Sig Dispensed Refills Start Date End Date Status 27-0.8 MG Oral Tablet Take 1 Tablet by mouth daily at noon. Active documented as of this encounter (statuses as of 01/11/2024) Active Problems Problem Noted Date Diagnosed Date Supervision of normal first 06/28/2023 Subchorionic hematoma, antepartum 06/28/2023 Estimated Date of Delivery Comme nts Yes 01/30/2024 Based on last me nstrual period of 04/25/2023 documented as of this encounter (statuses as of 01/11/2024) Resolved Problems Problem Noted Date Diagnosed Date Resolved Date Viral sinusitis 05/27/2022 09/01/2022 Non-recurrent acute suppurat chris otitis media of left ear without spontaneous rupture of tympanic membrane 05/27/2022 09/01/2022 Impacted cerumen of right ear 05/27/2022 09/01/2022 documented as of this encounter (statuses as of 01/11/2024) Immunizations Name Administration Dates Next Due PPD [...] money to get more. Never true 08/31/2023 [place] Depression Scale Answer Date Recorded [place] Depression Scale Total 4 11/23/2023 The thought [...] 08/31/2023 Does the household have a re lar source of income? (Household - for ages [...] Sign Reading Time Taken Comments Blood Pressure 94/62 01/11/2024 10:18 AM EDT Pulse - - Temperature - - Respiratory Rate - - Oxygen Saturation - - Inhaled Oxygen Concentration - - Weight 81.2 kg (179 lb) 01/11/2024 10:18 AM EDT Height 172.7 cm (5' 8") 01/11/2024 10:18 AM EDT Body Mass Index 27.22 01/11/2024 10:18 AM EDT documented in this encounter Progress Notes * Reva Ibanez CRNP - 01/11/2024 10:28 AM EDT 37w2d [place] lightheaded in the shower this morning, still feeling a little off. BP low. Encouraged hydration today, caution with position changes. No other concerns. Baby is active. Denies contractions, bleeding, LOF. OSWALD Mccarthy * Charito Benitez LPN - 01/11/2024 10:18 AM EDT 37w2d Almost passed out in shower this morning Lightheaded still feels it documented in this encounter Plan of Treatment Upcoming Encounters Date Type Department Care Team (Late st Contact Info) Description 01/19/2024 1:45 PM EDT Office Visit Gynecology/Obstetrics [facility] [address] [place] [address] Reva Ibanez CRNP [address] [place] [address] 01/25/2024 9:00 AM EDT Office Visit Gynecology/Obstetrics [facility] [address] [place] [address] Reva Ibanez CRNP [address] [place] [address] Health Maintenance Due Date Last Done Comments [...] third trimester- Primary Supervision of normal first documented in this encounter Care Teams Electrotyper Relationship Specialty Start Date End Date Kathrine Baez DO [address] [place] [address] PCP - General Family Medicine 10/07/18 documented as of this encounter
--- OUTSIDE RECORDS SUMMARY | 2024-02-02 06:09 | External Medical Summary | Summary of Care ---
Author Name Unknown Organization [facility] Address [address] [facility] [place] [address] Phone [phone] Care Team Providers Care Medical Van Driver Name Role Phone Kathrine Baez DO Primary Care Provider Reason for Visit * Reason Comments Return Visit Encounter Details Date Type Department Care Team (Late st Contact Info) Description 12/07/2023 8:45 AM EDT Office Visit Gynecology/Obstetric s [facility] Moreno [address] [place] [address] Sia Yeung CRNP [address] [place] [address] Encounter for supervision of normal first in third trimester* Allergies No known active allergiesdocumented as of this encounter (statuses as of 12/07/2023) Medications Medication Sig Dispensed Refills Start Date End Date Status 27-0.8 MG Oral Tablet Take 1 Tablet by mouth daily at noon. Active documented as of this encounter (statuses as of 12/07/2023) Active Problems Problem Noted Date Diagnosed Date Supervision of normal first 06/28/2023 Subchorionic hematoma, antepartum 06/28/2023 Estimated Date of Delivery Comme nts Yes 01/30/2024 Based on last me nstrual period of 04/25/2023 documented as of this encounter (statuses as of 12/07/2023) Resolved Problems Problem Noted Date Diagnosed Date Resolved Date Viral sinusitis 05/27/2022 09/01/2022 Non-recurrent acute suppurat chris otitis media of left ear without spontaneous rupture of tympanic membrane 05/27/2022 09/01/2022 Impacted cerumen of right ear 05/27/2022 09/01/2022 documented as of this encounter (statuses as of 12/07/2023) Immunizations Name Administration Dates Next Due PPD [...] money to get more. Never true 08/31/2023 [place] Depression Scale Answer Date Recorded [place] Depression Scale Total 4 11/23/2023 The thought [...] Reading Time Taken Comments Blood Pressure 98/60 12/07/2023 8:59 AM EDT Pulse - - Temperature - - Respiratory Rate - - Oxygen Saturation - - Inhaled Oxygen Concentration - - Weight 77.6 kg (171 lb) 12/07/2023 8:59 AM EDT Height - - Body Mass Index 26 11/23/2023 8:56 AM EDT documented in this encounter Progress Notes * Sia Yeung CRNP - 12/07/2023 9:02 AM EDT 32w2d Baby moving well, no ctx/leaking/bleeding. Completed the hospital tour, plans to use [facility] peds. 2 week return OSWALD Payne * Sada Connors LPN - 12/07/2023 8:59 AM EDT 32w2d Denies vaginal bleeding/rom + movement No new concerns documented in this encounter Plan of Treatment Upcoming Encounters Date Type Department Care Team (Late st Contact Info) Description 12/21/2023 8:15 AM EDT Office Visit Gynecology/Obstetrics [facility] [address] [place] [address] Reva Ibanez CRNP [address] [place] [address] Health Maintenance Due Date Last Done Comments COVID-19 Vaccine ( season) 2023 Influenza Vaccine (FLU shot) (Season Ended) 2024 Depression Screening 11/22/2024 11/23/2023 Pap Smear 06/28/2026 06/28/2023 DTaP,Tdap,and Td Vaccines [...] first documented in this encounter Care Teams Medical Van Driver Relationship Specialty Start Date End Date Kathrine Baez DO [address] [place] [address] PCP - General Family Medicine 10/07/18 documented as of this encounter
--- OUTSIDE RECORDS SUMMARY | 2024-02-02 06:09 | External Medical Summary | Summary of Care ---
Author Name Unknown Organization [facility] Address [address] [facility] [place] [address] Phone [phone] Care Team Providers Care Stock Preparation Operator Name Role Phone Kathrine Baez DO Primary Care Provider Reason for Visit * Reason Comments Return Visit Encounter Details Date Type Department Care Team (Late st Contact Info) Description 01/25/2024 9:00 AM EDT Office Visit Gynecology/Obstetric s [facility] Moreno [address] [place] [address] Reva Ibanez CRNP [address] [place] [address] Encounter for supervision of normal first in third trimester* Allergies No known active allergiesdocumented as of this encounter (statuses as of 01/25/2024) Medications Medication Sig Dispensed Refills Start Date End Date Status 27-0.8 MG Oral Tablet Take 1 Tablet by mouth daily at noon. Active documented as of this encounter (statuses as of 01/25/2024) Active Problems Problem Noted Date Diagnosed Date Supervision of normal first 06/28/2023 Subchorionic hematoma, antepartum 06/28/2023 Estimated Date of Delivery Comme nts Yes 01/30/2024 Based on last me nstrual period of 04/25/2023 documented as of this encounter (statuses as of 01/25/2024) Resolved Problems Problem Noted Date Diagnosed Date Resolved Date Viral sinusitis 05/27/2022 09/01/2022 Non-recurrent acute suppurat chris otitis media of left ear without spontaneous rupture of tympanic membrane 05/27/2022 09/01/2022 Impacted cerumen of right ear 05/27/2022 09/01/2022 documented as of this encounter (statuses as of 01/25/2024) Immunizations Name Administration Dates Next Due PPD [...] money to get more. Never true 08/31/2023 [place] Depression Scale Answer Date Recorded [place] Depression Scale Total 4 11/23/2023 The thought [...] Sign Reading Time Taken Comments Blood Pressure 98/58 01/25/2024 8:58 AM EDT Pulse - - Temperature - - Respiratory Rate - - Oxygen Saturation - - Inhaled Oxygen Concentration - - Weight 82.3 kg (181 lb 6.4 oz) 01/25/2024 8:58 A M EDT Height - - Body Mass Index 27.58 01/19/2024 1:45 PM EDT documented in this encounter Progress Notes * Reva Ibanez CRNP - 01/25/2024 9:17 AM EDT 39w2d Baby is active. Not having any contractions, bleeding, LOF. Has IOL 02/03. OSWALD Mccarthy * Sabra Moran, MED ASSIST - 01/25/2024 8:58 AM EDT 39w2d Denies vaginal bleeding/rom + movements No new concerns documented in this encounter Plan of Treatment Upcoming Encounters Date Type Department Care Team (Late st Contact Info) Description 02/01/2024 8:00 AM EDT Office Visit Gynecology/Obstetrics [facility] [address] [place] [address] Reva Ibanez CRNP [address] [place] [address] Health Maintenance Due Date Last Done Comments [...] first documented in this encounter Care Teams Stock Preparation Operator Relationship Specialty Start Date End Date Kathrine Baez DO [address] [place] [address] PCP - General Family Medicine 10/07/18 documented as of this encounter
--- OUTSIDE RECORDS SUMMARY | 2024-02-02 06:10 | External Medical Summary | Summary of Care ---
Author Name Unknown Organization [facility] Address [address] [facility] [place] [address] Phone [phone] Care Team Providers Care Gunner'S Mate M Name Role Phone Kathrine Baez DO Primary Care Provider [phone] Reason for Visit * Reason Comments Return Visit Encounter Details Date Type Department Care Team (Late st Contact Info) Description 09/14/2023 9:15 AM EST Office Visit Gynecology/Obstetric s Maritza Maes [address] [place] [address] Reva Ibanez CRNP [address] [place] [address] Encounter for supervision of normal first in second trimester* Allergies No known active allergiesdocumented as of this encounter (statuses as of 09/14/2023) Medications Medication Sig Dispensed Refills Start Date End Date Status 27-0.8 MG Oral Tablet Take 1 Tablet by mouth daily at noon. 0 Active documented as of this encounter (statuses as of 09/14/2023) Active Problems Problem Noted Date Diagnosed Date Supervision of normal first 06/28/2023 Subchorionic hematoma, antepartum 06/28/2023 Estimated Date of Delivery Comme nts Yes 01/30/2024 Based on last me nstrual period of 04/25/2023 documented as of this encounter (statuses as of 09/14/2023) Resolved Problems Problem Noted Date Diagnosed Date Resolved Date Viral sinusitis 05/27/2022 09/01/2022 Non-recurrent acute suppurat chris otitis media of left ear without spontaneous rupture of tympanic membrane 05/27/2022 09/01/2022 Impacted cerumen of right ear 05/27/2022 09/01/2022 documented as of this encounter (statuses as of 09/14/2023) Immunizations Name Administration Dates Next Due PPD 09/02/2022 TDAP (age 10 and older)(Boostrix) 09/02/2022 documented as of this encounter Social History [...] Date Recorded PHQ Adult Total Score 0 09/24/2020 Hunger Vital Sign Answer Date Recorded Within the past 12 months, y ou worried that your food would run out before you got the money to buy more. Never true 08/31/19 24 Within the past 12 months, t he food you bought just didn't last and you didn't have money to get more. Never true 08/31/2023 [place] Depression Scale Answer Date Recorded [place] Depression Scale Total 6 06/28/2023 The thought of harming myself has occurred to me . Never 06/28/2023 Estimated Date of Delivery Comme nts [...] Sign Reading Time Taken Comments Blood Pressure 94/58 09/14/2023 8:51 AM EST Pulse - - Temperature - - Respiratory Rate - - Oxygen Saturation - - Inhaled Oxygen Concentration - - Weight 68.9 kg (152 lb) 09/14/2023 8:51 AM EST Height 172.7 cm (5' 8") 09/14/2023 8:51 AM EST Body Mass Index 23.11 09/14/2023 8:51 AM EST documented in this encounter Progress Notes * Reva Ibanez CRNP - 09/14/2023 8:57 AM EST 20w2d Complaints: none Feeling well. +FM. No contractions, bleeding, or LOF. Anatomy u/s today, results pending. +cardiac activity on u/s. OSWALD Mccarthy documented in this encounter Nursing Notes * Nasima Olson LPN - 09/14/2023 8:53 AM EST 20w2d Had anatomy scan today- gender surprise. Denies concerns. documented in this encounter Plan of Treatment Upcoming Encounters Date Type Department Care Team (Late st Contact Info) Description 10/12/2023 9:00 AM EDT Office Visit Gynecology/Obstetrics Maritza oMreno [address] [place] [address] Reva Ibanez CRNP [address] [place] [address] Health Maintenance Due Date Last Done Comments Depression Screening 09/24/2021 09/24/2020 COVID-19 Vaccine (2022-24 season) 2023 Influenza Vaccine (FLU shot) (#1) 2023 Pap Smear 06/28/2026 06/28/2023 DTaP,Tdap,and Td Vaccines (8 - Td or Tdap) 09/02/2032 09/02/2022, 02/01/2006, 01/27/1999, Additional history exists Hepatitis B Completed 07/08/1994, [...] Encounter for supervision of normal first in second trimester- Primary Supervision of normal first documented in this encounter Care Teams Gunner'S Mate M Relationship Specialty Start Date End Date Kathrine Baez DO [address] [place] [address] PCP - General Family Medicine 10/07/18 documented as of this encounter
--- OUTSIDE RECORDS SUMMARY | 2024-02-02 06:10 | External Medical Summary | Summary of Care ---
Author Name Unknown Organization [facility] Address [address] [facility] [place] [address] Phone [phone] Care Team Providers Care Facing End Trimmer Name Role Phone Kathrine Baez DO Primary Care Provider [phone] Reason for Visit * Reason Comments Return Visit Encounter Details Date Type Department Care Team (Late st Contact Info) Description 11/23/2023 9:00 AM EDT Office Visit Gynecology/Obstetric s Maritza Moreno [address] [place] [address] Reva Ibanez CRNP [address] [place] [address] Encounter for supervision of normal first in third trimester*; Subchorionic hematoma, antepartum, single or unspecified fetus Allergies No known active allergiesdocumented as of this encounter (statuses as of 11/23/2023) Medications Medication Sig Dispensed Refills Start Date End Date Status 27-0.8 MG Oral Tablet Take 1 Tablet by mouth daily at noon. 0 Active documented as of this encounter (statuses as of 11/23/2023) Active Problems Problem Noted Date Diagnosed Date Supervision of normal first 06/28/2023 Subchorionic hematoma, antepartum 06/28/2023 Estimated Date of Delivery Comme nts Yes 01/30/2024 Based on last me nstrual period of 04/25/2023 documented as of this encounter (statuses as of 11/23/2023) Resolved Problems Problem Noted Date Diagnosed Date Resolved Date Viral sinusitis 05/27/2022 09/01/2022 Non-recurrent acute suppurat chris otitis media of left ear without spontaneous rupture of tympanic membrane 05/27/2022 09/01/2022 Impacted cerumen of right ear 05/27/2022 09/01/2022 documented as of this encounter (statuses as of 11/23/2023) Immunizations Name Administration Dates Next Due PPD [...] money to get more. Never true 08/31/2023 [place] Depression Scale Answer Date Recorded [place] Depression Scale Total 4 11/23/2023 The thought [...] Reading Time Taken Comments Blood Pressure 100/64 11/23/2023 8:56 AM EDT Pulse - - Temperature - - Respiratory Rate - - Oxygen Saturation - - Inhaled Oxygen Concentration - - Weight 73.9 kg (163 lb) 11/23/2023 8:56 AM EDT Height 172.7 cm (5' 8") 11/23/2023 8:56 AM EDT Body Mass Index 24.78 11/23/2023 8:56 AM EDT documented in this encounter Progress Notes * Reva Ibanez CRNP - 11/23/2023 9:11 AM EDT 30w2d Complaints: none Feeling really well. Good FM. No contractions, bleeding, or LOF. Planning to breastfeed. POP for contraception. OSWALD Mccarthy documented in this encounter Nursing Notes * Nasima Olson LPN - 11/23/2023 8:59 AM EDT 30w2d Denies concerns documented in this encounter Plan of Treatment Upcoming Encounters Date Type Department Care Team (Late st Contact Info) Description 12/07/2023 8:45 AM EDT Office Visit Gynecology/Obstetrics [facility] [address] [place] [address] Sia Yeung CRNP [address] [place] [address] Health Maintenance Due Date Last Done Comments COVID-19 Vaccine (2022- season) 2023 Influenza Vaccine (FLU shot) (Season Ended) 2024 Depression Screening 11/22/2024 11/23/2023, 09/25/19 21 Pap Smear 06/28/2026 06/28/2023 DTaP,Tdap,and Td Vaccines [...] fetus documented in this encounter Care Teams Facing End Trimmer Relationship Specialty Start Date End Date Kathrine Baez DO [address] [place] [address] PCP - General Family Medicine 10/07/18 documented as of this encounter
--- OUTSIDE RECORDS SUMMARY | 2024-02-02 06:10 | External Medical Summary ---
Author Name Unknown Address Unknown Organization K0G[facility] [address] [place] [id number] Laboratory Report Ordering Provider Test Date Status JULIEN POSEY 11/08/2023 09:49:55 Final Observation Date Value Abnormality Reference (Units ) Status WBC, Total 11/08/2023 09:49:55 9.23 4.00-10.8 0 (K/uL) Final RBC 11/08/2023 09:49:55 4.12 3.85-5.15 (M/uL) Final Hemoglobin 11/08/2023 09:49:55 12.6 12.0-15.3 (g/dL) Final Anemia reflex testing trigge rs on a HGB < 12.0 for Females and HGB < 13.0 for Males in accordance with the WHO Anemia Guidelines
Anemia reflex testing triggers on a HGB < 12.0 for Females and HGB < 13.0 for Males in accordance with the WHO Anemia Guidelines HCT 11/08/2023 09:49:55 38.1 36.0-45.2 (%) Final MCV 11/08/2023 09:49:55 92.5 81.5-97.5 (fL) Final MCH 11/08/2023 09:49:55 30.6 27.0-34.0 (pg) Final MCHC 11/08/2023 09:49:55 33.1 32.0-36.0 (g/dL) Final RDW 11/08/2023 09:49:55 12.3 11.5-15.5 (%) Final Platelets 11/08/2023 09:49:55 265 140-400 (K /uL) Final MPV 11/08/2023 09:49:55 10.4 6.6-11.1 ( fL) Final Performing Location [facility] [address] [place] [address]
--- OUTSIDE RECORDS SUMMARY | 2024-02-02 06:10 | External Medical Summary ---
Author Name Unknown Address Unknown Organization K0G:[facility] [address] [place] [address] Laboratory Report Ordering Provider Test Date Status JULIEN POSEY 11/08/2023 09:49:55 Final Observation Date Value Abnormality Reference (Units ) Status SYNC LEUKOCYTES IN BLOOD BY AUTOMATED COUNT 11/08/2023 09:49:55 9.23 4.00-10.80 (K/uL) Final Segs 11/08/2023 09:49:55 76.8 Above high normal 40.0-75.0 (%) Final Lymphs % 11/08/2023 09:49:55 15.4 Below low normal 18.0-42.0 (%) Final Monos 11/08/2023 09:49:55 6.1 1.0-11.0 (%) Final Eosinophils 11/08/2023 09:49:55 1.5 0.0-6.0 (%) Final Basos 11/08/2023 09:49:55 0.2 0.0-2.0 (%) Final Absolute Segs 11/08/2023 09:49:55 7.09 1.80-7.70 (K/uL) Final Lymphs, absolute 11/08/2023 09:49:55 1.42 1.00-4.80 (K/ul) Final Monos, Abs 11/08/2023 09:49:55 0.56 0.00-1.10 (K/uL) Final Eos, Abs 11/08/2023 09:49:55 0.14 0.00-0.70 (K/uL) Final Basos, Abs 11/08/2023 09:49:55 0.02 0.00-0.20 (K/uL) Final Performing Location [facility] [address] [place] [id number]
--- OUTSIDE RECORDS SUMMARY | 2024-02-02 06:10 | External Medical Summary ---
Author Name Unknown Address Unknown Organization K01:[facility] [place] - [address] [place] [id number] Laboratory Report Ordering Provider Test Date Status STEVENSON PEREZ 11/08/2023 09:49:55 Final Observation Date Value Abnormality Reference (Units ) Status MYCODE SPECIMEN-SST 11/08/2023 09:49:55 Freezing of extracted DNA, whole blood and/or serum. Final Performing Location [facility] - [address] [place] [address]
--- OUTSIDE RECORDS SUMMARY | 2024-02-02 06:10 | External Medical Summary ---
Author Name Unknown Address Unknown Organization K01:[facility] [place] - [address] [place] [address] Laboratory Report Ordering Provider Test Date Status STEVENSON PEREZ 11/08/2023 09:49:55 Final Observation Date Value Abnormality Reference (Units ) Status MYCODE SPECIMEN-SST 11/08/2023 09:49:55 Freezing of extracted DNA, whole blood and/or serum. Final Performing Location [facility] - [address] [place] [address]
--- OUTSIDE RECORDS SUMMARY | 2024-02-02 06:10 | External Medical Summary | Summary of Care ---
Author Name Unknown Organization [facility] Address [address] [facility] [place] [address] Phone [phone] Care Team Providers Care Cube Cutter Name Role Phone Kathrine Baez DO Primary Care Provider [phone] Encounter Details Date Type Department Care Team (Late st Contact Info) Description 11/15/2023 Orders Only Outcomes Research Department [address] [facility] [place] [id number] Olya Jackson CHRA [employer] Research Other*[id number] Allergies No known active allergiesdocumented as of this encounter (statuses as of 11/15/2023) Medications Medication Sig Dispensed Refills Start Date End Date Status 27-0.8 MG Oral Tablet Take 1 Tablet by mouth daily at noon. 0 Active documented as of this encounter (statuses as of 11/15/2023) Active Problems Problem Noted Date Diagnosed Date Supervision of normal first 06/28/2023 Subchorionic hematoma, antepartum 06/28/2023 Estimated Date of Delivery Comme nts Yes 01/30/2024 Based on last me nstrual period of 04/25/2023 documented as of this encounter (statuses as of 11/15/2023) Resolved Problems Problem Noted Date Diagnosed Date Resolved Date Viral sinusitis 05/27/2022 09/01/2022 Non-recurrent acute suppurat chris otitis media of left ear without spontaneous rupture of tympanic membrane 05/27/2022 09/01/2022 Impacted cerumen of right ear 05/27/2022 09/01/2022 documented as of this encounter (statuses as of 11/15/2023) Immunizations Name Administration Dates Next Due PPD [...] money to get more. Never true 08/31/2023 [place] Depression Scale Answer Date Recorded [place] Depression Scale Total 6 06/28/2023 The thought [...] on file documented as of this encounter Plan of Treatment Upcoming Encounters Date Type Department Care Team (Late st Contact Info) Description 11/23/2023 9:00 AM EDT [facility] [address] [place] [address] Reva Ibanez CRNP [address] [place] [address] Scheduled Orders Name Type Priority Associated Diagnoses Orde r Schedule MYCODE SUBSEQUENT ADULT Lab Routine [employer] Other*[id number] Every 6 Months for 2 Occurrences starting 11/15/2023 until 12/04/2024 Health Maintenance Due Date Last Done Comments Depression Screening 09/24/2021 09/24/2020 COVID-19 Vaccine (2022- season) 2023 Influenza Vaccine (FLU shot) (Season Ended) 2024 Pap Smear 06/28/2026 06/28/2023 DTaP,Tdap,and Td Vaccines [...] as of this encounter Visit Diagnoses Diagnosis [employer] Other*[id number] documented in this encounter Care Teams Cube Cutter Relationship Specialty Start Date End Date Kathrine Baez DO [address] [facility] [place] [address] PCP - General Family Medicine 10/07/18 documented as of this encounter
--- OUTSIDE RECORDS SUMMARY | 2024-02-02 06:10 | External Medical Summary | Summary of Care ---
Author Name Unknown Organization [facility] Address [address] [facility] [place] [address] Phone [phone] Care Team Providers Care Marketing Producer Name Role Phone Kathrine Baez DO Primary Care Provider Reason for Visit * Reason Comments Return Visit Encounter Details Date Type Department Care Team (Late st Contact Info) Description 08/23/2023 8:45 AM EST Office Visit Gynecology/Obstetric [facility] [address] [place] [address] Jhonathan Pimentel MD [address] [place] [address] Encounter for supervision of normal first in second trimester*; Subchorionic hematoma, antepartum, single or unspecified fetus Allergies No known active allergiesdocumented as of this encounter (statuses as of 08/23/2023) Medications Medication Sig Dispensed Refills Start Date End Date Status 27-0.8 MG Oral Tablet Take 1 Tablet by mouth daily at noon. 0 Active documented as of this encounter (statuses as of 08/23/2023) Active Problems Problem Noted Date Diagnosed Date Supervision of normal first 06/28/2023 Subchorionic hematoma, antepartum 06/28/2023 Estimated Date of Delivery Comme nts Yes 01/30/2024 Based on last me nstrual period of 04/25/2023 documented as of this encounter (statuses as of 08/23/2023) Resolved Problems Problem Noted Date Diagnosed Date Resolved Date Viral sinusitis 05/27/2022 09/01/2022 Non-recurrent acute suppurat chris otitis media of left ear without spontaneous rupture of tympanic membrane 05/27/2022 09/01/2022 Impacted cerumen of right ear 05/27/2022 09/01/2022 documented as of this encounter (statuses as of 08/23/2023) Immunizations Name Administration Dates Next Due PPD [...] the money to buy more. Never true 03/18/20 23 Within the past 12 months, t he food you bought just didn't last and you didn't have money to get more. Never true 03/18/2023 [place] Depression Scale Answer Date Recorded [place] Depression Scale Total 6 06/28/2023 The thought [...] Sign Reading Time Taken Comments Blood Pressure 96/56 08/23/2023 8:45 AM EST Pulse - - Temperature - - Respiratory Rate - - Oxygen Saturation - - Inhaled Oxygen Concentration - - Weight 64.9 kg (143 lb) 08/23/2023 8:45 AM EST Height 172.7 cm (5' 8") 08/23/2023 8:45 AM EST Body Mass Index 21.74 08/23/2023 8:45 AM EST documented in this encounter Progress Notes * Jhonathan Pimentel MD - 08/23/2023 8:55 AM EST 1st time seeing pt Doing well No complaints Anatomy scan @ 20 weeks documented in this encounter Nursing Notes * Nasima Olson LPN - 08/23/2023 8:50 AM EST 17w1d Denies concerns. documented in this encounter Plan of Treatment Upcoming Encounters Date Type Department Care Team (Late st Contact Info) Description 09/14/2023 7:30 AM EST Imaging Radiology [facility] [address] [facility] [place] [address] 09/14/2023 9:15 AM EST Office Visit Gynecology/Obstetrics [facility] [address] [facility] [place] [address] Reva Ibanez CRNP [address] [place] [address] Scheduled Orders Name Type Priority Associated Diagnoses Orde r Schedule US PREG SINGLE/1ST GEST, 14 WEEKS OR LATER Medical Imaging Routine Encounter for supervision of normal first in second trimester Subchorionic hematoma, antepartum, single or unspecified fetus Expected: 09/13/2023 (Approximate), Expires: 09/20/2024 Health Maintenance Due Date Last Done Comments COVID-19 Vaccine (#1) 06/17/1994 Depression Screening 09/24/2021 09/24/2020 Influenza Vaccine (FLU shot) (#1) 2023 Pap [...] second trimester- Primary Supervision of normal first Subchorionic hematoma, antepartum, single or unspecified fetus documented in this encounter Care Teams Marketing Producer Relationship Specialty Start Date End Date Kathrine Baez DO [address] [facility] [place] [address] PCP - General Family Medicine 10/07/18 documented as of this encounter
--- OUTSIDE RECORDS SUMMARY | 2024-02-02 06:10 | External Medical Summary | Summary of Care ---
Author Name Unknown Organization [facility] Address [address] [facility] [place] [address] Phone [phone] Care Team Providers Care Programmer Operator Numerical Control Name Role Phone Kathrine Baez DO Primary Care Provider [phone] Reason for Visit * Reason Comments Return Visit Encounter Details Date Type Department Care Team (Late st Contact Info) Description 11/08/2023 9:15 AM EDT Office Visit Gynecology/Obstetric s Maritza Moreno [address] [place] [address] Nessa Solitario PA-C [address] [place] [address] Encounter for supervision of normal first in third trimester*; Subchorionic hematoma, antepartum, single or unspecified fetus; Need for kknslhghvn-vopcdbj-de rtussis (Tdap) vaccine Allergies No known active allergiesdocumented as of this encounter (statuses as of 11/08/2023) Medications Medication Sig Dispensed Refills Start Date End Date Status 27-0.8 MG Oral Tablet Take 1 Tablet by mouth daily at noon. 0 Active documented as of this encounter (statuses as of 11/08/2023) Active Problems Problem Noted Date Diagnosed Date Supervision of normal first 06/28/2023 Subchorionic hematoma, antepartum 06/28/2023 Estimated Date of Delivery Comme nts Yes 01/30/2024 Based on last me nstrual period of 04/25/2023 documented as of this encounter (statuses as of 11/08/2023) Resolved Problems Problem Noted Date Diagnosed Date Resolved Date Viral sinusitis 05/27/2022 09/01/2022 Non-recurrent acute suppurat chris otitis media of left ear without spontaneous rupture of tympanic membrane 05/27/2022 09/01/2022 Impacted cerumen of right ear 05/27/2022 09/01/2022 documented as of this encounter (statuses as of 11/08/2023) Immunizations Name Administration Dates Next Due PPD [...] money to get more. Never true 08/31/2023 [place] Depression Scale Answer Date Recorded [place] Depression Scale Total 6 06/28/2023 The thought [...] Sign Reading Time Taken Comments Blood Pressure 110/62 11/08/2023 9:24 AM EDT Pulse - - Temperature - - Respiratory Rate - - Oxygen Saturation - - Inhaled Oxygen Concentration - - Weight 75.4 kg (166 lb 3.2 oz) 11/08/2023 9:24 A M EDT Height 172.7 cm (5' 8") 11/08/2023 9:24 AM EDT Body Mass Index 25.27 11/08/2023 9:24 AM EDT documented in this encounter Progress Notes * Nessa Solitario PA-C - 11/08/2023 9:40 AM EDT 28w1d Completing glucola and third tri labs today. Baby breech on anatomy, uncertain lie today. Denies VB, LOF, contractions. Baby is active. Moving throughout appointment. Counseled on TDAP, accepts and given. RTC in 2 weeks Nessa Solitario PA-C documented in this encounter Nursing Notes * Deepika Warner RN - 11/08/2023 9:41 AM EDT Patient here for TDAP injection. Patient doing well no complaints. Injection given IM as ordered. Patient tolerated well. Patient to follow up as directed. Patient instructed to call if any complications. Patient verbalized understanding of instructions given and her follow up appt for 2 weeks Injection site: Left Deltoid Medication Source: Dispensed stock medication * Deepika Warner RN - 11/08/2023 9:25 AM EDT Patient here for WILMA 28w1d No concerns Glucola and tdap today Deepika Warner RN documented in this encounter Plan of Treatment Upcoming Encounters Date Type Department Care Team (Late st Contact Info) Description 11/23/2023 9:00 AM EDT Office Visit Gynecology/Obstetrics [address] [place] [address] Reva Ibanez CRNP [address] [place] [address] Health Maintenance Due Date Last Done Comments Depression Screening 09/24/2021 09/24/2020 COVID-19 Vaccine ( - 2022-24 season) 2023 Influenza Vaccine (FLU shot) (Season [...] Subchorionic hematoma, antepartum, single or unspecified fetus Need for lhluqempkc-uivswzh-lkfzummqj (Tdap) vaccine Need for prophylactic vaccination with combined uwsmujpuuc-zuwoyfo-jpqzbnezm (DTP) vaccine documented in this encounter Care Teams Programmer Operator Numerical Control Relationship Specialty Start Date End Date Kathrine Baez DO [address] [place] [address] PCP - General Family Medicine 10/07/18 documented as of this encounter
--- OUTSIDE RECORDS SUMMARY | 2024-02-02 06:10 | External Medical Summary | Summary of Care ---
Author Name Unknown Organization [facility] Address [address] [facility] [place] [address] Phone [phone] Care Team Providers Care Naturopathic Doctor Name Role Phone Kathrine Baez DO Primary Care Provider [phone] Reason for Visit * Reason Comments Return Visit Encounter Details Date Type Department Care Team (Late st Contact Info) Description 10/12/2023 9:00 AM EDT Office Visit Gynecology/Obstetric s Maritza Moreno [address] [place] [address] Reva Ibanez CRNP [address] [place] [address] Encounter for supervision of normal first in second trimester*; Subchorionic hematoma, antepartum, single or unspecified fetus Allergies No known active allergiesdocumented as of this encounter (statuses as of 10/12/2023) Medications Medication Sig Dispensed Refills Start Date End Date Status 27-0.8 MG Oral Tablet Take 1 Tablet by mouth daily at noon. 0 Active documented as of this encounter (statuses as of 10/12/2023) Active Problems Problem Noted Date Diagnosed Date Supervision of normal first 06/28/2023 Subchorionic hematoma, antepartum 06/28/2023 Estimated Date of Delivery Comme nts Yes 01/30/2024 Based on last me nstrual period of 04/25/2023 documented as of this encounter (statuses as of 10/12/2023) Resolved Problems Problem Noted Date Diagnosed Date Resolved Date Viral sinusitis 05/27/2022 09/01/2022 Non-recurrent acute suppurat chris otitis media of left ear without spontaneous rupture of tympanic membrane 05/27/2022 09/01/2022 Impacted cerumen of right ear 05/27/2022 09/01/2022 documented as of this encounter (statuses as of 10/12/2023) Immunizations Name Administration Dates Next Due PPD [...] money to get more. Never true 08/31/2023 [place] Depression Scale Answer Date Recorded [place] Depression Scale Total 6 06/28/2023 The thought [...] Sign Reading Time Taken Comments Blood Pressure 84/60 10/12/2023 8:49 AM EDT Pulse - - Temperature - - Respiratory Rate - - Oxygen Saturation - - Inhaled Oxygen Concentration - - Weight 72.1 kg (159 lb) 10/12/2023 8:49 AM EDT Height 172.7 cm (5' 8") 10/12/2023 8:49 AM EDT Body Mass Index 24.18 10/12/2023 8:49 AM EDT documented in this encounter Progress Notes * Reva Ibanez CRNP - 10/12/2023 9:05 AM EDT 24w2d Complaints: back pain, suggested chiropractor. Feeling well otherwise. Good FM. No contractions, bleeding, or LOF. Glucola with next visit. OSWALD Mccarthy documented in this encounter Nursing Notes * Nasima Olson LPN - 10/12/2023 8:54 AM EDT 24w2d Denies concerns labs next visit documented in this encounter Plan of Treatment Upcoming Encounters Date Type Department Care Team (Late st Contact Info) Description 11/08/2023 8:40 AM EDT [facility] [address] [place] [phone] [facility] [address] [address] 11/08/2023 9:15 AM EDT Office Visit Gynecology/Obstetrics Maritza Moreno [address] [place] [address] Nessa Solitario PA-C [address] [place] [address] Scheduled Orders Name Type Priority Associated Diagnoses Orde r Schedule CBC WITH WBC DIFFERENTIAL AND ANEMIA REFLEX WORKUP Lab Routine Encounter for supervision of normal first in second trimester Expected: 11/12/2023 (Approximate), Expires: 10/11/2024 SYPHILIS ANTIBODY SCREEN WITH REFLEX TO RPR Lab Routine Encounter for supervision of normal first in second trimester Expected: 11/12/2023 (Approximate), Expires: 10/11/2024 50-G GESTATIONAL GLUCOSE, 1 HOUR Lab Routine Encounter for supervision of normal first in second trimester Expected: 11/12/2023 (Approximate), Expires: 10/11/2024 Health Maintenance Due Date Last Done Comments Depression Screening 09/24/2021 09/24/2020 COVID-19 Vaccine ( season) 2023 Influenza Vaccine (FLU shot) (#1) [...] fetus documented in this encounter Care Teams Naturopathic Doctor Relationship Specialty Start Date End Date Kathrine Baez DO [address] [facility] [place] [address] PCP - General Family Medicine 10/07/18 documented as of this encounter
--- OUTSIDE RECORDS SUMMARY | 2024-02-02 06:10 | External Medical Summary ---
Author Name Unknown Address Unknown Organization [id number]:[facility] [address] [place] [address] Laboratory Report Ordering Provider Test Date Status JULIEN POSEY 11/08/2023 09:49:55 Final Observation Date Value Abnormality Reference (Units ) Status Glucose [Moles/volume] in Serum or Plasma --1 hour post 50 g glucose PO 11/08/2023 09:49:55 115 70-129 (mg/dL) Final Performing Location [facility] [place] [address] [place] [id number]
--- OUTSIDE RECORDS SUMMARY | 2024-02-02 06:10 | External Medical Summary ---
Author Name Unknown Address Unknown Organization [id number]:[facility] [place] [address] [place] [address] Laboratory Report Ordering Provider Test Date Status STEVENSON PEREZ 11/08/2023 09:49:55 Final Observation Date Value Abnormality Reference (Units ) Status MYCODE SPECIMEN-LAV 11/08/2023 09:49:55 Freezing of extracted DNA, whole blood and/or serum. Final Performing Location LABORATORY [facility] - [address] [place] [address]
--- OUTSIDE RECORDS SUMMARY | 2024-02-02 06:10 | External Medical Summary ---
Author Name Unknown Address Unknown Organization [id number]:[facility] [place] - [address] [place] [address] Laboratory Report Ordering Provider Test Date Status JULIEN POSEY 11/08/2023 09:49:55 Final Observation Date Value Abnormality Reference (Units ) Status Treponema pallidum Ab [Presence] in Serum by Immunoassay 11/08/2023 09:49:55 Nonreactive Nonreactive Final No serologic evidence of syp hilis. No additional testing clinicially indicated at this time. Consider repeat testing in 2-4 weeks if acute or primary syphilis is suspected. Performing Location [facility] [place] - [address] [place] [address]
--- OUTSIDE RECORDS SUMMARY | 2024-02-02 06:10 | External Medical Summary | Summary of Care ---
Author Name Unknown Organization [facility] Address [address] [facility] [place] [address] Phone [phone] Care Team Providers Care Stoker Installer Name Role Phone Kathrine Baez DO Primary Care Provider [phone] Reason for Visit * Reason Comments Outpatient Testing Encounter Details Date Type Department Care Team (Late st Contact Info) Description 11/08/2023 8:40 AM EDT Laboratory Laboratory, [facility] [address] [facility] [place] [phone] [facility] [address] [facility] [address] [employer] Other*[id number]; Encounter for supervision of normal first in second trimester Allergies No known active allergiesdocumented as [...] money to get more. Never true 08/31/2023 [place] Depression Scale Answer Date Recorded [place] Depression Scale Total 6 06/28/2023 The thought [...] 11/23/2023 9:00 AM EDT Office Visit Gynecology/Obstetrics [facility] [address] [place] [address] Marcelle RevaOSWALD Jason [address] [place] [address] Pending Results Name Type Priority Associated Diagnoses Date /Time MYCODE INITIAL ADULT Lab Routine [employer] Other*[id number] 11/08/2023 9:49 AM EDT CBC WITH WBC DIFFERENTIAL AND ANEMIA REFLEX WORKUP Lab Routine Encounter for supervision of normal first in second trimester 11/08/2023 9:49 AM EDT SYPHILIS ANTIBODY SCREEN WITH REFLEX TO RPR Lab Routine Encounter for supervision of normal first in second trimester 11/08/2023 9:49 AM EDT 50-G GESTATIONAL GLUCOSE, 1 HOUR Lab Routine Encounter for supervision of normal first in second trimester 11/08/2023 9:49 AM EDT MYCODE INITIAL ADULT-PINK Lab Routine [employer] Other*[id number] 11/08/2023 9:49 AM EDT MYCODE SST1 Lab Routine [employer] Other*[id number] 11/08/2023 9:49 AM EDT MYCODE SST2 Lab Routine [employer] Other*[id number] 11/08/2023 9:49 AM EDT ANEMIA CBC Lab Routine Encounter for supervision of normal first in second trimester 11/08/2023 9:49 AM EDT DIFFERENTIAL, AUTOMATED Lab Routine Encounter for supervision of normal first in second trimester 11/08/2023 9:49 AM EDT ANEMIA REFLEX CHEMISTRY HOLD Lab Routine Encounter for supervision of normal first in second trimester 11/08/2023 9:49 AM EDT SYPHILIS ANTIBODY SCREEN Lab Routine Encounter for supervision of normal first in second trimester 11/08/2023 9:49 AM EDT Health Maintenance Due Date Last Done Comments [...] this encounter Visit Diagnoses Diagnosis [employer] Other*[id number] Encounter for supervision of normal first in second trimester Supervision of normal first documented in this encounter Care Teams Stoker Installer Relationship Specialty Start Date End Date Kathrine Baez DO [address] [place] [address] PCP - General Family Medicine 10/07/18 documented as of this encounter
[2024-02-02] MEDS: FERROUS SULFATE 325 MG TAB PO SCH (07:46)
[2024-02-02] MEDS: DOCUSATE SODIUM 100 MG CAP PO SCH (07:46)
[2024-02-02] MEDS: PRENATAL VITAMIN 1 TAB PO SCH (07:46)
--- NOTE | 2024-02-02 07:48 | Anesthesia Procedure Note ---
Date of Service February 02, 2024 Anesthesia Post Epidural Note Vital Signs Vital Signs: Temp Pulse Resp BP Pulse Ox 37.1 C 102 H 18 104/71 98 02/02/24 03:57 02/02/24 03:57 02/02/24 03:57 02/02/24 03:57 02/01/24 23:22 Pain Intensity Abdomen: Pain Intensity: 4 Notes Mental Status: alert / awake / arousable and participated in evaluation Nausea / Vomiting: adequately controlled Pain: adequately controlled Airway Patency, RR, SpO2: stable & adequate BP & HR: stable & adequate Hydration State: stable & adequate Neuraxial Anesthesia: was administered and sensory block is resolving Anesthetic Complications: no major complications apparent Epidural: Removed without complications and With tip intact
--- NOTE | 2024-02-02 10:28 | Obstetrical Progress Note ---
Date of Service February 02, 2024 Subjective Ambulation: ambulating normally Voiding: no voiding problems Passing Gas:: Yes Diet Tolerance:: regular diet Lochia:: Small Feeding Type:: breast feeding Current Pain Level(1-10): 0 still having sore perineum Physical Exam Constitutional WD/WN, vitals as above Gastrointestinal (Abdomen) Inspection/Auscultation: abdomen normal to inspection abdomen soft and non-tender fundus firm below U Musculoskeletal Extremities: extremities normal to inspection Skin no rashes, warm and dry Neurologic patellar DTR's 2+ bilat, sensation intact Psychiatric A+Ox3, euthymic affect Results & Data Vital Signs (Past 12 Hours) Vital Signs Temp Pulse Pulse Resp BP BP Pulse Ox 02/02/24 07:40 36.7 C 70 18 114/80 98 02/02/24 07:40 02/02/24 03:57 37.1 C 102 H 18 104/71 02/02/24 03:13 78 128/82 02/02/24 01:32 70 123/77 02/02/24 01:17 76 123/72 02/02/24 01:02 68 123/85 02/02/24 00:47 70 120/79 02/02/24 00:32 75 110/75 02/02/24 00:17 82 114/69 02/02/24 00:02 93 H 111/68 02/01/24 23:47 76 02/01/24 23:47 119/61 02/01/24 23:36 81 02/01/24 23:36 120/61 02/01/24 23:34 90 02/01/24 23:34 115/56 L 02/01/24 23:32 96 H 02/01/24 23:32 112/58 L 02/01/24 23:22 98 02/01/24 23:22 106 H 02/01/24 23:17 99 02/01/24 23:17 106 H 02/01/24 23:17 113/62 02/01/24 23:12 97 02/01/24 23:12 107 H 02/01/24 23:07 100 02/01/24 23:07 93 H 02/01/24 23:02 100 02/01/24 23:02 91 H 02/01/24 23:02 125/73 02/01/24 22:57 100 02/01/24 22:57 95 H 02/01/24 22:52 100 02/01/24 22:52 77 02/01/24 22:47 100 02/01/24 22:47 78 02/01/24 22:47 123/77 02/01/24 22:42 100 02/01/24 22:42 81 02/01/24 22:37 99 02/01/24 22:37 68 02/01/24 22:32 100 02/01/24 22:32 81 02/01/24 22:32 115/72 02/01/24 22:27 99 02/01/24 22:27 71 O2 Del Method 02/02/24 07:40 Room Air 02/02/24 07:40 Room Air 02/02/24 03:57 02/02/24 03:13 02/02/24 01:32 02/02/24 01:17 02/02/24 01:02 02/02/24 00:47 02/02/24 00:32 02/02/24 00:17 02/02/24 00:02 02/01/24 23:47 02/01/24 23:47 02/01/24 23:36 02/01/24 23:36 02/01/24 23:34 02/01/24 23:34 02/01/24 23:32 02/01/24 23:32 02/01/24 23:22 02/01/24 23:22 02/01/24 23:17 02/01/24 23:17 02/01/24 23:17 02/01/24 23:12 02/01/24 23:12 02/01/24 23:07 02/01/24 23:07 02/01/24 23:02 02/01/24 23:02 02/01/24 23:02 02/01/24 22:57 02/01/24 22:57 02/01/24 22:52 02/01/24 22:52 02/01/24 22:47 02/01/24 22:47 02/01/24 22:47 02/01/24 22:42 02/01/24 22:42 02/01/24 22:37 02/01/24 22:37 02/01/24 22:32 02/01/24 22:32 02/01/24 22:32 02/01/24 22:27 02/01/24 22:27 Laboratory Results Laboratory Results - last 24 hr 02/01/24 19:35 WBC 11.53 H RBC 4.59 Hgb 12.3 Hct 37.3 MCV 81.3 MCH 26.8 MCHC 33.0 RDW Std Deviation 38.5 RDW Coeff of Lesli 13.2 Plt Count 286 MPV 11.6
[2024-02-02] MEDS: MAGNESIUM HYDROXIDE SUSP 30 ML UDC PO SCH (11:38)
[2024-02-02] MEDS: oxyCODONE/ACETAMINOPHEN 5mg/325mg TAB PO PRN (11:45)
[2024-02-02] MEDS: ACETAMINOPHEN 325 MG TAB PO PRN (17:51)
[2024-02-02] MEDS: bisacodyL 5 MG TABEC PO SCH (20:04)
[2024-02-03 06:30] LABS: Hematocrit (blood only) 34.3 % (37.0-47.0); Hemoglobin 10.9 g/dl (12.0-16.0); Mean Corpuscular Hemoglobin 26.7 pg (25.0-34.0); Mean Corpuscular Hgb Conc 31.8 g/dL (32.0-36.0); Mean Corpuscular Volume 84.1 fL (80.0-100.0); Mean Platelet Volume 11.7 fL (9.4-12.4); Platelet Count 225 K/uL (130-400); RDW Coefficient of Variation 13.3 % (11.5-14.5); RDW Standard Deviation 40.7 fL (36.4-46.3); Red Blood Count 4.08 M/uL (4.20-5.40); White Blood Count 11.95 K/ul (4.8-10.8)
[2024-02-03] MEDS: ACETAMINOPHEN 325 MG TAB PO PRN (08:40)
--- NOTE | 2024-02-03 09:14 | Obstetrical Progress Note ---
Date of Service February 03, 2024 Assessment & Plan (1) Vaginal delivery: Plan d/c home instructions reviewed follow up in the office in 3 weeks and 6 weeks for visit Discussed contraception. stool softeners recommended, lidocaine 2 percent gel apply to rectal area. Admission and Anticipated Discharge Date Admission Date: February 01, 2024 Subjective S/P third degree vaginal laceration repair. Review of Systems Review of Systems: All systems reviewed & are unremarkable except as noted in HPI & below Constitutional: as per Subjective / HPI Respiratory: as per Subjective / HPI Cardiovascular: as per Subjective / HPI Physical Exam Constitutional: WD/WN, vitals as above Genitourinary: pt says comfortable, declined exam Results & Data Vital Signs (Past 12 Hours) Vital Signs Temp Pulse Resp BP Pulse Ox O2 Del Method 02/03/24 07:48 35.9 C L 68 16 104/71 99 Room Air 02/03/24 07:48 Room Air 02/02/24 23:30 36.8 C 70 16 120/84 99 Room Air
[2024-02-03] MEDS ORDERED: bisacodyL 5 MG TABEC PO SCH (20:00)
[2024-02-04] MEDS ORDERED: bisacodyL 10 MG SUPP PR PRN (00:15)
== END 2024-02-03 15:46 | disposition home or self-care (01) | DRG 768 ==
LOC: OPB 18:31 → 4S1 18:33 → 4E2 02-02 03:57
DX: O48.0 Post-term pregnancy; Z37.0 Single live birth; Z3A.40 40 weeks gestation of pregnancy; O70.20 Third degree perineal laceration during delivery, unspecified